=== PATIENT | male | born 1980 | race Caucasian/White ===

== ENCOUNTER → 2020-03-30 | Outpatient (CLI) | payer OTHER ==
--- NOTE | 2020-03-30 10:13 | PDOC2 ---
INITIAL PAIN CONSULT DATE OF SERVICE: DOS: DATE: 03/30/20 TIME: 10:05 CHIEF COMPLAINT: Chief Complaint: Low back and bilateral lower extremity pain HISTORY OF PRESENT ILLNESS: 40-year-old male presents with history of pain low back bilateral lower extremities on and off for the past 20 years. 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 Patient reports pain now is in the low back and the bilateral lower extremities mostly in the low back however but occasionally radiating to the right lower extremity posterior lateral thigh but mostly in the back itself patient scribes pain is constant sharp stabbing throbbing tingling with some numbness in the leg especially on the right and also in the right ankle. Patient reports no loss of motor function but significant fatigability with the lower extremities with standing walking changing positions better with sitting or laying down but does awaken from sleep release 1-3 times a night patient ports does not affect his bowel bladder control but does affect his ability to walk not use any assistive devices to ambulate. Patient had previous injection therapy also physical therapy and chiropractic treatments all which have helped but is been fairly short-lived. Patient takes Tylenol and Advil but only intermittently and has not had an 8 in the past 3 weeks. Reports when he does take these they do decrease the pain by a moderate extent. Patient rates his disability rating 0-10 10 me the worst is a 5 with family home responsibilities social activity sexual behavior 7 with recreation occupation and self-care and 5 with life support activities. Has not had any diagnostic studies at this time and has not had any for the past the past 10 years by his report. PAST MEDICAL HISTORY: PMH: patient has been in generally good health no major medical problems or conditi ons or concerns No known drug allergies PREVIOUS SURGERIES: Past Surgical Hx: Right knee surgery right shoulder surgery, right Achilles tendon repair, vocal cord surgery x5 CURRENT MEDICATIONS: Current Meds: Active Scripts Medications Dose Route/Sig Max Daily Dose Days Date Category No Known Medications Prior To Admisstion (Info) Each 1 Each MC 1X PREOP PRN 03/30/20 Reported FAMILY HISTORY: Family Hx: No major medical problems or conditions that he is aware of SOCIAL HISTORY: Social Hx: Patient drinks alcohol maybe once a week does not smoke says any illegal illicit or recreational drugs is lives with his spouse has 1 child living at home and 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 Extraocular movements are intact and symmetrical. Oral cavity: Mucous membranes moist and pink. Dentition is intact. NECK: Shows anterior throat supple without palpable lymphadenopathy noted. Swallow reflex symmetrical. CHEST: Shows normal on inspection. Breath sounds are clear bilaterally, no rales rhonchi or wheezes auscultated. HEART: Shows S1, S2 clear. No murmurs auscultated. ABDOMEN: Soft, nontender, nondistended. No palpable organomegaly is noted. No rebound or guarding demonstrated. BACK: Shows spine grossly in the midline. Normal-appearing cervical lordotic curvature. There is slightly increased thoracic kyphosis, some minor flattening of the lumbar lordotic curvature. Lumbar paraspinous muscles show symmetrical on inspection, on palpation shows some moderate tenderness diffusely throughout the upper, middle and lower distribution of the paraspinous muscles bilaterally and also into the lower thoracic paraspinous musculature, firm and tender, but without specific trigger points, without radiation of pain. The patient has good rotational motion of the lumbar spine, both laterally as well as extension and flexion without significant difficulty. No tenderness over the spinous processes, sacrum or sacroiliac regions. EXTREMITIES: Lower extremities show deep tendon reflexes 2+ in the patellar and tendo calcaneus tendons. Motor exam is 5 on a scale of 5 with right dorsiflexion, extension, quadriceps and hamstring flexion and 5/5 on the left. Peripheral pulses are 1+ posterior tibial. No peripheral edema is noted bilaterally. Lower extremities are warm and dry to touch, equal in color and appearance. Straight leg raise noted to be negative bilaterally. Gaenslen's and Selvin's maneuvers are negative as well. The patient is able to stand, stand on his toes without difficulty or loss of balance walks with a normal- appearing gait does not appear to favor the right or left lower extremity significantly does not use any assistive devices. SKIN: Shows warm and dry, good turgor. No edema. No sores, rashes or bruising throughout. IMPRESSION: Impression: 40-year-old male with long history low back pain bilateral lower extremity pain worse on the right than the left. History of degenerative disc disease No recent diagnostic studies lumbar spine Plan: Options discussed with the patient, including conservative medical kadeagus hamilton is physical therapies interventional techniques and he would like to pursue interventional techniques. We discussed a lumbar epidural steroid injection using description as well as anatomical models to describe the procedure. Patient will wait for preauthorization with his insurance provider and return once this is obtained for lumbar epidural steroid injection at the L4-5 level translaminar approach. In the meantime we will order MRI scan lumbar spine also Medrol Dosepak was given with instructions side effects be aware of. Patient will return after MRI scan and after Medrol Dosepak is completed CHRISTY GEORGE MD Mar 30, 2020 10:13
== END | disposition home or self-care (01) ==
LOC: PNCL 09:07
PROVIDERS: ATTEND Anesthesiology
DX: M54.5 Low back pain (principal); M79.662 Pain in left lower leg; M79.661 Pain in right lower leg; M51.36 Other intervertebral disc degeneration, lumbar region
CPT/HCPCS: G0463

== ENCOUNTER → 2020-07-30 | Outpatient (CLI) | payer OTHER ==
--- NOTE | 2020-07-30 11:38 | KCIC ---
EXAM: Lumbar spine CT without contrast. HISTORY: Pain. TECHNIQUE: Computed tomographic images of the lumbar spine were obtained without contrast. Multiplana r reformatting was performed. *One or more of the following individualized dose reduction techniques were utilized for this examina tion: 1. Automated exposure control. 2. Adjustment of the mA and/or kV according to patient size. 3. Use of iterative reconstruction technique. COMPARISON: None. FINDINGS: There is slight reversal of lumbar lordosis. There is 3 mm retrolisthesis of L4 on L5 and L 5 on S1. There is multilevel endplate remodeling. There are multiple endplate Schmorl's nodes, the la rgest of which is seen within the anterior inferior endplate of L1. There is disc space narrowing and vacuum phenomenon at L5-S1. There is no fracture or suspicious osseous lesion. There are 2 mm nonobs tructing bilateral renal stones. The sacroiliac joints are intact. At L1-L2, there is endplate remodeling. There is no stenosis. At L2-L3, there is a mild disc bulge and endplate remodeling. There is no stenosis. At L3-L4, there is a mild disc bulge and endplate remodeling. There is mild bilateral foraminal steno sis. At L4-L5, there is a right foraminal disc protrusion and osteophyte complex superimposed on a disc bu lge and endplate remodeling. There is mild retrolisthesis. There is moderate right and mild left fora juan stenosis. At L5-S1, there is a right lateral recess disc protrusion superimposed on a disc bulge and endplate o steophytosis. There is retrolisthesis. There is moderate bilateral foraminal stenosis. There is mild central canal stenosis. IMPRESSION: 1. Multilevel degenerative change involving the lumbar spine, described in detail above. This results in foraminal stenosis at the aforementioned levels. 2. Mild retrolisthesis at the lower lumbar levels. 3. No acute osseous finding. 4. Bilateral nephrolithiasis. Electronically signed by: Beckie Manrique MD (07/30/2020 11:35 AM) [id number]
== END ==
LOC: KCIC MRI 09:08
PROVIDERS: ATTEND Family Medicine
DX: M47.816 Spondylosis without myelopathy or radiculopathy, lumbar region (principal); M51.36 Other intervertebral disc degeneration, lumbar region; M43.16 Spondylolisthesis, lumbar region; N20.0 Calculus of kidney
CPT/HCPCS: 72131